=== PATIENT | female | born 1985 | race Caucasian/White ===

== ENCOUNTER 2016-07-22 21:25 | Emergency (ER) | payer OTHER ==
[2016-07-22 22:12] LABS: BILIRUBIN NEGATIVE (NEGATIVE); BLOOD NEGATIVE Ery/uL (NEGATIVE); CLARITY CLEAR (CLEAR); COLOR YELLOW (YELLOW); GLUCOSE (U) NORMAL (NORMAL); KETONE (U) TRACE mg/dL (NEGATIVE); LEUKOCYTES NEGATIVE Leu/uL (NEGATIVE); NITRITE NEGATIVE (NEGATIVE); PROTEIN TRACE (LOW) mg/dL (NEGATIVE); SPECIFIC GRAVITY 1.025 (1.001-1.030)
[2016-07-22 22:17] LABS: BACTERIA TRACE; MUCOUS MODERATE; SQUAMOUS EPITHELIAL CELLS RARE
[2016-07-22 22:19] LABS: BASOPHIL 0.4 % (0-2); EOSINOPHIL 2.7 % (0-5); HCT 38.4 % (37.0-47.0); HGB 13.3 g/dl (12.5-16.0); LYMPHOCYTE 28.1 % (15-48); MCH 30.5 pg (25.0-31.0); MCHC 34.6 g/dL (32.0-36.0); MCV 88.1 fL (78.0-100.0); MONOCYTE 8.4 % (0-12); MPV 11.3 fL (6.0-9.5); NEUTROPHIL 60.4 % (41-80); PLT 246 K/uL (150-400); RBC 4.36 M/uL (4.20-5.40); RDW 13.2 % (11.5-14.0); WBC 11.6 K/uL (4.0-10.5)
[2016-07-22 22:25] LABS: AMPHETAMINES NEGATIVE (NEGATIVE); BARBITURATES NEGATIVE (NEGATIVE); BENZODIAZEPINES NEGATIVE (NEGATIVE); COCAINE NEGATIVE (NEGATIVE); MARIJUANA (THC) NEGATIVE (NEGATIVE); METHADONE NEGATIVE (NEGATIVE); TRICYCLIC ANTIDEPRESSANT NEGATIVE (NEGATIVE)
[2016-07-22 22:39] LABS: ACETAMINOPHEN (TYLENOL) < 5.0 ug/mL (10.0-30.0); ALCOHOL (ETOH) MEDICAL NONE DETECTED; SALICYLATE < 6 ug/mL (0-300)
[2016-07-22 22:40] LABS: ALBUMIN 4.6 g/dL (3.5-5.0); BILIRUBIN - TOTAL 0.4 mg/dL (0.1-1.0); CREATININE 0.6 mg/dL (0.5-1.0); GLOBULIN (CALCULATION) 2.2 g/dL (2.2-4.2); POTASSIUM 3.4 mmol/L (3.5-5.1); TOTAL PROTEIN 6.8 g/dL (6.4-8.3)
== END 2016-07-23 13:40 | disposition other institution (70) ==
LOC: FER 21:25
PROVIDERS: Emergency Medicine
DX: F32.9 Major depressive disorder, single episode, unspecified (principal); F41.9 Anxiety disorder, unspecified; F17.210 Nicotine dependence, cigarettes, uncomplicated; Z79.899 Other long term (current) drug therapy
CPT/HCPCS: 36415; 80053; 80305; 81001; 85025; G0480